=== PATIENT | male | born 1980 | race Caucasian/White ===

== ENCOUNTER 2017-12-31 13:32 | Emergency (ER) | payer OTHER ==
[~2017-12-31] VITALS: Ht 185.4 cm; Wt 74.8 kg
[2017-12-31 13:56] VITALS: BP 119/66
[2017-12-31] MEDS: NEOMY/BACITR/POLYMYXIN OINT PACKET. TP ONE (14:42)
[2017-12-31] MEDS: DIPHTH,PERTUSS(ACELL),TET TOX 0.5 ML DISP.SYRIN. VAX IM ONE (14:43)
[2017-12-31] MEDS: LIDOCAINE WITH 8.4% SOD BICARB 3 ML DISP.SYRIN. INJ ONE (14:43)
--- NOTE | 2017-12-31 16:03 | PHYS DOC ---
Past Medical History Past Medical History: No Pertinent History Past Surgical History: No Surgical History Alcohol Use: Occasionally Drug Use: None Adult General Chief Complaint Chief Complaint: LACERATION/AVULSION HPI HPI Patient is a 37 year old male who presents to the emergency department with complaints of a laceration to his left wrist. Patient states he was trimming steaks at work when he accidentally cut himself at approximately 1315 this afternoon. Patient reports his pain as a 4 out of 10 on the pain scale. He denies any need for pain medication at this time. Patient is unsure when his last tetanus shot was. He denies any numbness, tingling, or decreased movement of his left wrist or fingers. Patient reports increased pain with movement of his wrist. Review of Systems Review of Systems Constitutional: Denies fever or chills [] Musculoskeletal: Denies back pain, left hand, or left wrist pain Integument: Denies rash, reports laceration to anterior aspect of left wrist. Neurologic: Denies focal weakness or sensory changes [] Current Medications Current Medications Current Medications Medications (Trade) Dose Ordered Sig/Faraz Start Time Stop Time Status Last Admin Dose Admin Diphtheria/ Tetanus/Acell Pertussis (Boostrix) 0.5 ml ONCE ONCE 12/31/17 14:15 12/31/17 14:16 DC 12/31/17 14:43 0.5 ML Lidocaine/Sodium Bicarbonate (Buffered Lidocaine 1%) 3 ml 1X ONCE 12/31/17 14:15 12/31/17 14:16 DC 12/31/17 14:43 3 ML Neomycin/ Polymyxin/ Bacitracin (Triple Antibiotic Ointment) 1 pkt 1X ONCE 12/31/17 14:15 12/31/17 14:16 DC 12/31/17 14:42 1 PKT Allergies Allergies Allergies Coded Allergies Type Severity Reaction Last Updated Verified Penicillins Allergy Intermediate RASH 12/31/17 Yes ibuprofen Allergy Intermediate RASH 12/31/17 Yes Physical Exam Physical Exam Constitutional: Well developed, well nourished, no acute distress, non-toxic appearance. [] HENT: Normocephalic, atraumatic, bilateral external ears normal, nose normal. [] Eyes: Normal Skin: Warm, dry, no erythema, no rash; 3 cm laceration noted to the anterior aspect of the left wrist, bleeding controlled with pressure being held by patient. [] Extremities: No cyanosis, no clubbing, ROM intact, no edema, bilateral radial pulses are strong and palpable [] Neurologic: Alert and oriented X 3, normal motor function, normal sensory function, no focal deficits noted. [] Psychologic: Affect normal, judgement normal, mood normal. [] Current Patient Data Vital Signs Vital Signs Date Time Temp Pulse Resp B/P (MAP) Pulse Ox O2 Delivery O2 Flow Rate FiO2 12/31/17 13:56 98.5 63 18 119/66 (83) 94 Room Air 98.5 EKG EKG [] Radiology/Procedures Radiology/Procedures Laceration Repair by me: Anesthesia: Buffered 1% lidocaine locally Location: Left anterior wrist Tendon/Joint/Nerves: No injury Foreign body: None detected after copious irrigation and exploration Technique: 6 Simple Interrupted Sutures with 3-0 Ethilon Complexity: No subcutaneous sutures/mucosal repair/edge excision Post Closure Length: 3 cm Patient's bleeding was easily controlled in the department and there is no indication of anemia. No evidence of compartment syndrome, neurologic injury, vascular injury, open joint, tendon laceration, or foreign body. Patient is appropriate for outpatient follow up. 48 hour wound check. Scar minimization instructions given. [] Course & Med Decision Making Course & Med Decision Making Pertinent Labs and Imaging studies reviewed. (See chart for details) Patient is a 37-year-old male who presents to the emergency room today with complaints of the left wrist laceration after Accidentally cutting himself while trimming steaks at work today. [] His vital signs are stable. Patient was given a TDap in the emergency department. Laceration repair was performed as described above. She was placed in a Velcro wrist immobilizer. He was instructed to follow-up for wound recheck in approximately 48 hours with his primary care doctor or to the emergency room. And have the sutures removed in 10 days.Patient verbalized an understanding of home care, medications, follow-up, and return to ED instructions and was in agreement with the plan of care. Dragon Disclaimer Dragon Disclaimer This electronic medical record was generated, in whole or in part, using a voice recognition dictation system. Departure Departure Impression: Primary Impression: Laceration of left wrist without complication Disposition: HOME, SELF-CARE Condition: STABLE Referrals: NO PCP (PCP) Patient Instructions: Laceration Care, Adult, [id number] Additional Instructions: Keep the suture area clean and dry, leave the dressing was applied in the ER on for 24 hours, then he may change the dressing twice a day and apply antibiotic ointment. Tylenol or ibuprofen as needed for pain. Wear the Velcro wrist splint that was provided until sutures are removed. Follow-up with your primary care doctor or return to the emergency room in 10 days to have the sutures removed. Follow-up with your doctor in the next 48 hours for wound recheck, return to the ER if your symptoms worsen. Problem Qualifiers Primary Impression: Laceration of left wrist without complication Encounter type: initial encounter Qualified Codes: S61.512A - Laceration without foreign body of left wrist, initial encounter PRAFUL ARMANDO APRN Dec 31, 2017 16:03
== END 2017-12-31 16:15 | disposition home or self-care (01) ==
LOC: ER 13:32
DX: S61.512A Laceration without foreign body of left wrist, initial encounter (principal); Z88.0 Allergy status to penicillin; Z88.8 Allergy status to other drugs, medicaments and biological substances; Y28.8XXA Contact with other sharp object, undetermined intent, initial encounter; Y93.H2 Activity, gardening and landscaping; Y92.69 Other specified industrial and construction area as the place of occurrence of the external cause; Y99.8 Other external cause status
CPT/HCPCS: 12002; 29125; 90471; 90715; 99283-25

== ENCOUNTER 2018-03-22 23:33 | Observation (INO) | payer SELFPAY ==
[~2018-03-22] VITALS: Ht 175.3 cm; Wt 81.6 kg
[2018-03-23] MEDS ORDERED: HALOPERIDOL LACTATE 5 MG/ML VIAL. ONE ×2 (00:01→00:46)
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
[2018-03-23] MEDS ORDERED: DIPHTH,PERTUSS(ACELL),TET TOX 0.5 ML DISP.SYRIN. VAX IM ONE (00:15)
[2018-03-23] MEDS ORDERED: IV NORMAL SALINE 1000ML BAG 1,000 ML IV ONE ×2 (00:15→06:30)
[2018-03-23] MEDS ORDERED: PROCHLORPERAZINE 10 MG/2 ML VIAL. IV ONE (00:15)
[2018-03-23 00:31] LABS: BASO # 0.1 x10^3/uL (0.0-0.2); BASO % 1 % (0-3); EOS # 0.3 x10^3/uL (0.0-0.7); EOS % 2 % (0-3); HEMATOCRIT 46.6 % (39.0-53.0); HEMOGLOBIN 16.2 g/dL (13.0-17.5); LYMPH # 4.1 x10^3/uL (1.0-4.8); LYMPH % 26 % (24-48); MEAN CORPUSCULAR HEMOGLOBIN 33 pg (25-35); MEAN CORPUSCULAR HGB CONC 35 g/dL (31-37); MEAN CORPUSCULAR VOLUME 93 fL (79-100); MONO # 1.7 x10^3/uL (0.0-1.1); MONO % 11 % (0-9); NEUT # 9.4 x10^3uL (1.8-7.7); NEUT % 61 % (31-73); PLATELET COUNT 232 x10^3/uL (140-400); RED BLOOD COUNT 4.99 x10^6/uL (4.30-5.70); WHITE BLOOD COUNT 15.5 x10^3/uL (4.0-11.0)
[2018-03-23 00:43] LABS: CALCIUM 8.6 mg/dL (8.5-10.1); CREATININE 1.1 mg/dL (0.7-1.3); GFR 74.9; POTASSIUM 3.3 mmol/L (3.5-5.1)
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
[2018-03-23] MEDS ORDERED: ONDANSETRON PF 4 MG/2 ML VIAL. IV PRN (06:45)
[2018-03-23 07:45] VITALS: BP 109/38
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
[2018-03-23 10:32] VITALS: BP 113/69
[2018-03-23 14:33] VITALS: BP 117/62
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
== END 2018-03-23 16:58 | disposition left against medical advice (07) ==
LOC: EDBD → ER 23:33 → MERGE 03-23 06:59 → 2 SOUTH 03-23 06:59
PROVIDERS: ADMIT Internal Medicine; ATTEND Internal Medicine
DX: S00.83XA Contusion of other part of head, initial encounter (principal); S02.82XA Fracture of other specified skull and facial bones, left side, initial encounter for closed fracture; F10.129 Alcohol abuse with intoxication, unspecified; E87.6 Hypokalemia; R11.10 Vomiting, unspecified; F17.210 Nicotine dependence, cigarettes, uncomplicated; X58.XXXA Exposure to other specified factors, initial encounter; Y93.89 Activity, other specified; Y92.89 Other specified places as the place of occurrence of the external cause; Y99.8 Other external cause status
CPT/HCPCS: 36415; 70450; 70486; 71045; 72125; 80048; 85025; 96360; 96361; 99285; G0378; G0480; J1630; J2060; J7030; G0379